=== PATIENT | female | born 1985 | race African-American/Black ===

== ENCOUNTER 2022-12-19 18:25 | Emergency (ER) | payer OTHER ==
[~2022-12-19] VITALS: Ht 165.1 cm; Wt 72.7 kg
[2022-12-19] MEDS ORDERED: LOSA-381 PO (18:34)
[2022-12-19] MEDS ORDERED: CLOB15CR41 TP (18:36)
[2022-12-19] MEDS ORDERED: IBUP-1492 PO (20:56)
[2022-12-19 21:25] VITALS: BP 134/77
== END 2022-12-19 21:35 | disposition home or self-care (01) ==
LOC: EMS 18:30
DX: S90.121A Contusion of right lesser toe(s) without damage to nail, initial encounter (principal); I10 Essential (primary) hypertension; Z98.890 Other specified postprocedural states; Z90.710 Acquired absence of both cervix and uterus; W31.89XA Contact with other specified machinery, initial encounter; Y93.89 Activity, other specified; Y92.89 Other specified places as the place of occurrence of the external cause; Y99.8 Other external cause status
CPT/HCPCS: 99283

== ENCOUNTER 2023-10-27 10:56 | Emergency (ER) | payer OTHER ==
[~2023-10-27] VITALS: Ht 170.2 cm; Wt 87.3 kg
[~2023-10-27 10:56] MED LIST: CLOB15CR41 TP; IBUP-1492 PO; LOSA-381 PO
[2023-10-27 11:09] VITALS: TEMP 98
[2023-10-27 11:27] LABS: COVID AG,FIA SOURCE NASAL SWAB
[2023-10-27 12:02] LABS: INFLUENZA TYPE A NEGATIVE FOR TYPE A (NEGATIVE); INFLUENZA TYPE B NEGATIVE FOR TYPE B (NEGATIVE); SARS-COV2 (COVID) ANTIGEN,FIA Negative (Negative)
[2023-10-27] MEDS ORDERED: ALBUTEROL SULFATE 2.5 MG/0.5 ML NEB SOLUTION NEB ONE (12:15)
[2023-10-27] MEDS ORDERED: IPRATROPIUM BROMIDE 0.5 MG/2.5 ML NEB SOLUTION NEB ONE (12:15)
[2023-10-27 12:42] VITALS: PULSE 78; RESP 16; O2SAT 96
[2023-10-27 12:43] VITALS: PULSE 78; RESP 16; O2SAT 95
[2023-10-27] MEDS ORDERED: ALBU18HF12 IH (13:49)
[2023-10-27] MEDS ORDERED: AZIT250T9 PO (13:49)
[2023-10-27 14:16] VITALS: BP 128/88; PULSE 71; RESP 16
== END 2023-10-27 14:21 | disposition home or self-care (01) ==
LOC: EMS 11:03
DX: J40 Bronchitis, not specified as acute or chronic (principal); I10 Essential (primary) hypertension; Z90.710 Acquired absence of both cervix and uterus; Z98.890 Other specified postprocedural states; Z20.822 Contact with and (suspected) exposure to COVID-19
CPT/HCPCS: 71045; 87804; 94640; 99284; J7613